=== PATIENT | male | born 1930 | race Caucasian/White ===

== ENCOUNTER → 2016-05-05 | Outpatient (CLI) | payer OTHER | LOC: RAD 13:13 | DX: R06.02 Shortness of breath (principal) ==

== ENCOUNTER → 2016-10-28 | Outpatient (CLI) | payer OTHER | LOC: RAD 09:04 | DX: J90 Pleural effusion, not elsewhere classified (principal) ==

== ENCOUNTER 2017-01-16 12:05 | Inpatient (IN) | payer OTHER ==
[~2017-01-16] VITALS: Ht 182.9 cm; Wt 84.4 kg
--- NOTE | ~2017-01-16 | HC ---
[facility] [place] [address] CONSULTATION Name: MICHELET HARDING Room #: 219-P [facility] ..#: [id number] Admission: 01/16/17 Attend Phys: Bunny Craig MD Discharge: 01/18/17 Date of : 32 Report #: [id number] THIS REPORT FOR: //name// CC: Bunny Allen DATE OF SERVICE: 01/18/2017 HISTORY OF PRESENT ILLNESS: The patient is an 86-year-old male with a history of COPD, prior right lower lobectomy, admitted with acute respiratory failure. He was noted to have community-acquired pneumonia with COPD exacerbation. He was admitted from the pulmonary physician's office. He has been treated with IV Solu-Medrol. He is on antibiotics. He has a history of anemia and the daughter has concerns regarding getting a Procrit shot. This was discussed with Dr. Craig. We are seeing him in rehabilitation medicine consultation. PAST MEDICAL HISTORY: Includes chronic kidney disease stage 3 and macular degeneration. There is a remote history of a prior CVA. There is a note of some dementia. He is noted to be hard of hearing, decreased vision. He was not on any oxygen premorbidly. CODE STATUS: He is a no code. MEDICATIONS: Please see the full medication listing. SOCIAL HISTORY: Lives in an assisted living facility at [facility]. He indicates he did not utilize any gait aids, although there is reference to him using a walker. Again, he was not on any oxygen. REVIEW OF SYSTEMS: No current complaints of chest pain or abdominal discomfort or focal extremity pain complaints. He does have decreased attention and seems to be rather rambling with his speech. PHYSICAL EXAMINATION: GENERAL: An 86-year-old white male, unkempt, cooperative, but has decreased insight. He was aware that he does have pneumonia. He will follow basic 1 step commands. VITAL SIGNS: Temperature 98.4, pulse 79, respirations 16, blood pressure 181/87. HEENT: Facies appeared symmetric. NEUROLOGIC: He has functional range of motion of the upper extremity. Strength is grade 4-/5. DTRs are trace to 1. Lower extremities, no focal calf swelling, functional range of motion. Strength is grade 4-/5. He was refusing the gait belt with therapies. He is mod assist, sit to stand. Gait was 5 steps mod assist with a front-wheeled walker. He has been on oxygen [address] [address] CONSULTATION Name: JOYJERAMIEMICHELET Room #: 219-P [facility]#: [id number] Admission: 01/16/17 Attend Phys: Bunny Craig MD Discharge: 01/18/17 Date of : 32 Report #: [id number] ASSESSMENT: An 86-year-old white male with the following problem list: 1. Pulmonary rehabilitation. 2. Acute respiratory failure. 3. Community-acquired pneumonia. 4. Chronic obstructive pulmonary disease exacerbation. 5. Prior right lower lobectomy. 6. Anemia, previously on Procrit. 7. Chronic kidney disease. 8. Macular degeneration. 9. Hard of hearing. 10. Remote history of cerebrovascular accident. 11. History of dementia is noted, but was nevertheless living in an assisted living facility environment. PLAN: Discussion with Dr. Craig. Daughter is very specific regarding the issue of Procrit and this will need to be clarified prior to rehabilitation unit admission. See case management note from earlier today. We should be able to admit him to the rehab strong once this is clarified and if the daughter is in agreement. We will ask the vocational rehabilitation counselor to try to see if we can get him a room as close as possible to the nurse's station. We will be glad to follow along with you regarding rehab therapy issues. By: 1245 [id number] Steve Monroe MD /BOBBY
--- NOTE | ~2017-01-16 | EKG ---
[address] [address] ELECTROCARDIOGRAM REPORT Name: MICHELET HARDING Room #: 219-P [facility] M.R.#: [id number] Admission: 01/16/17 Attend Phys: Juan Alberto Barnes MD Discharge: Date of : 32 Report #: [id number] THIS REPORT FOR: //name// [facility] Test Date: 2017-01-16 Test Time: 16:59:23 Pat Name: MICHELET HARDING Department: Room: 219 P Gender: M Loaf Counter: Rosalie NUÑEZ : 1930 Requested By: Chaparro Campos Order Number: [id number] MD: Edgar Fonseca Measurements Intervals Wing Rate: 88 P: 65 ME: 172 QRS: 15 QRSD: 102 T: 46 QT: 382 QTc: 463 Interpretive Statements Sinus rhythm Supraventricular bigeminy Borderline low voltage, extremity leads Anteroseptal infarct, old No previous ECG available for comparison Electronically Signed On 01-16-2017 18:26:29 AUTOMATIC PRESS[employer] by Edgar Fonseca [email or web address] <ELECTRONICALLY SIGNED> By: Edgar Fonseca MD 01/16/17 1826 1659 1659 Edgar Fonseca MD /EPI
[2017-01-16 13:53] VITALS: BP 192/92
[2017-01-16 14:44] LABS: HEMOGLOBIN 9.9 gm/dL (14.0-18.0); MANUAL DIFF YES; MCH 30.3 pg (26.0-34.0); MCHC 33.1 g/dL (28.0-37.0); MCV 91.6 fL (80.0-100.0); PLATELET COUNT 318 thou/uL (150-400); RBC 3.28 mil/uL (4.50-6.00); RDW 13.1 % (10.5-14.5); WBC 9.4 thou/uL (4.0-11.0)
[2017-01-16] MEDS ORDERED: FLOMAX0.4 MG PO (14:45)
[2017-01-16] MEDS ORDERED: EXELON1 EAC2 TRANSDERM (14:46)
[2017-01-16] MEDS ORDERED: SYNTHROID88 MCG PO (14:47)
[2017-01-16] MEDS ORDERED: BREO ELLIPTA 11 EACH INH (14:47)
[2017-01-16] MEDS ORDERED: TUDORZA PRESS400 MCG INH (14:47)
[2017-01-16] MEDS ORDERED: HYDRALAZINE 2525 MG PO (14:48)
[2017-01-16] MEDS ORDERED: NAMENDA 5 MG TAB5 M1 PO (14:48)
[2017-01-16] MEDS ORDERED: ASPIR 8181 MG PO (14:49)
[2017-01-16 15:19] LABS: ABSOLUTE NEUTROPHILS 7.6 thou/uL (1.4-8.2); ANISOCYTOSIS 1+; TOTAL CELL COUNT 100
[2017-01-16 15:20] LABS: POLYCHROMASIA OCCASIONAL
[2017-01-16 15:41] LABS: ABG SAMPLE TYPE ARTERIAL; BE(vivo) 0.3 mmol/L (-2 to +3); HCO3 24.6 mmol/L (22.0-26.0); LACTATE 0.81 mmol/L (0.5-2.0); O2(CT) 14.3 mL/dL (15.0-23.0); O2Hb 93.9 % (92.0-98.0); PCO2 38.6 mmHg (35.0-45.0); PO2 72.5 mmHg (80.0-100.0); STICK SITE R.RADIAL; pH 7.422 (7.360-7.450); sO2 94.9 % (92.0-98.0); tCO2 25.8 mmol/L (24.0-30.0)
[2017-01-16 15:45] LABS: CALCIUM 8.3 mg/dL (8.5-10.1); CREATININE 1.5 mg/dL (0.7-1.3); POTASSIUM 4.1 mmol/L (3.5-5.1)
[2017-01-16 15:49] LABS: ALBUMIN 2.4 g/dL (3.4-5.0); TOTAL BILIRUBIN 0.4 mg/dL (<0.1-1.0); TOTAL PROTEIN 6.4 g/dL (6.4-8.2)
[2017-01-16 16:41] LABS: URINE BILIRUBIN NEGATIVE (Negative); URINE BLOOD NEGATIVE (Negative); URINE COLOR YELLOW; URINE GLUCOSE-RANDOM* NEGATIVE (Negative); URINE KETONES TRACE (Negative); URINE LEUKOCYTES-REFLEX NEGATIVE (Negative); URINE PROTEIN (DIPSTICK) TRACE (Negative); URINE SPECIFIC GRAVITY 1.025 (1.005-1.035)
[2017-01-16 17:07] VITALS: BP 154/46
[2017-01-16 19:36] VITALS: BP 179/88
[2017-01-16 23:42] VITALS: BP 157/67
[2017-01-17 03:10] LABS: HEMATOCRIT 29.8 % (42.0-52.0); HEMOGLOBIN 10.1 gm/dL (14.0-18.0); MCH 30.8 pg (26.0-34.0); MCHC 33.9 g/dL (28.0-37.0); MCV 90.8 fL (80.0-100.0); RBC 3.28 mil/uL (4.50-6.00); RDW 13.4 % (10.5-14.5); WBC 6.9 thou/uL (4.0-11.0)
[2017-01-17 03:17] LABS: CALCIUM 8.3 mg/dL (8.5-10.1); CREATININE 1.4 mg/dL (0.7-1.3); POTASSIUM 4.2 mmol/L (3.5-5.1)
[2017-01-17 03:27] VITALS: BP 149/72
[2017-01-17 08:45] VITALS: BP 138/59
[2017-01-17 11:24] VITALS: BP 143/67
[2017-01-17 15:26] VITALS: BP 134/65
[2017-01-17 20:20] VITALS: BP 153/65
[2017-01-18 03:30] VITALS: BP 161/74
[2017-01-18 03:49] LABS: HEMATOCRIT 28.3 % (42.0-52.0); HEMOGLOBIN 9.4 gm/dL (14.0-18.0); MCH 30.1 pg (26.0-34.0); MCHC 33.1 g/dL (28.0-37.0); MCV 90.8 fL (80.0-100.0); RBC 3.11 mil/uL (4.50-6.00)
[2017-01-18 03:57] LABS: CALCIUM 8.4 mg/dL (8.5-10.1); CREATININE 1.4 mg/dL (0.7-1.3); POTASSIUM 4.5 mmol/L (3.5-5.1)
[2017-01-18 07:36] VITALS: BP 178/86
[2017-01-18 07:54] LABS: % SATURATION 50 % (20-39); IRON 61 ug/dL (65-175); TIBC 121 ug/dL (250-450); UIBC 60 ug/dL
[2017-01-18 08:23] LABS: FOLIC ACID 16.9 ng/mL (8.6-58.9)
[2017-01-18 12:01] VITALS: BP 181/87
[2017-01-18] MEDS ORDERED: PREDNISONE 10 M10 MG PO (15:30)
[2017-01-18] MEDS ORDERED: CEFPODOXIME PR200 M1 PO (15:31)
[2017-01-18 15:43] VITALS: BP 181/87
[2017-01-18 16:22] VITALS: BP 181/87
== END 2017-01-18 16:08 | disposition home health service (06) | DRG 189 ==
LOC: 2N 12:05 → ENTRNSPT 01-18 15:58 → EDTRNSPTSTS 01-18 16:01 → 2N 01-18 16:08
PROVIDERS: Hospitalist; Internal Medicine; Internal Medicine Pulmonary Disease
DX: J96.21 Acute and chronic respiratory failure with hypoxia (principal); J18.9 Pneumonia, unspecified organism; J44.1 Chronic obstructive pulmonary disease with (acute) exacerbation; J90 Pleural effusion, not elsewhere classified; J44.0 Chronic obstructive pulmonary disease with (acute) lower respiratory infection; E03.9 Hypothyroidism, unspecified; D64.9 Anemia, unspecified; N18.3 Chronic kidney disease, stage 3 (moderate); F03.90 Unspecified dementia, unspecified severity, without behavioral disturbance, psychotic disturbance, mood disturbance, and anxiety; H91.90 Unspecified hearing loss, unspecified ear; H54.7 Unspecified visual loss; I12.9 Hypertensive chronic kidney disease with stage 1 through stage 4 chronic kidney disease, or unspecified chronic kidney disease; J96.22 Acute and chronic respiratory failure with hypercapnia; H35.30 Unspecified macular degeneration; Z88.1 Allergy status to other antibiotic agents; Z88.2 Allergy status to sulfonamides; Z79.899 Other long term (current) drug therapy; Z87.891 Personal history of nicotine dependence; Z79.82 Long term (current) use of aspirin; Z86.73 Personal history of transient ischemic attack (TIA), and cerebral infarction without residual deficits; Z85.118 Personal history of other malignant neoplasm of bronchus and lung
CPT/HCPCS: 10081